=== PATIENT | female | born 1990 | race Caucasian/White ===

== ENCOUNTER → 2017-04-16 11:13 | Outpatient (CLI) | payer SELFPAY ==
[2017-04-16 15:21] LABS: Chlamydia Trachomatis by PCR Negative (Negative); Neisserai gonorrhoeae by PCR Negative (Negative); Probe Check PASS; Sample Adequacy Control PASS; Specimen Processing Control PASS
== END ==
PROVIDERS: Visit Provider Obstetrics & Gynecology
DX: Z32.01 Encounter for pregnancy test, result positive (principal); Z11.3 Encounter for screening for infections with a predominantly sexual mode of transmission
CPT/HCPCS: 87491; 87591

== ENCOUNTER 2017-05-20 06:01 | Day surgery (SDC) | payer SELFPAY ==
[2017-05-18 12:51] LABS: Hemoglobin 12.3 g/dl (12.0-15.0); Mean Corp Hgb Conc 34.2 g/gl (32-36); Mean Corpuscular Hgb 31.4 pg (27.0-32.0); Mean Corpuscular Volume 91.8 fL (81-99); Mean Platelet Vol. 10.4 fl (6.2-12.0); Platelet Count 260 K/mm3 (150-450); RBC Distribution Width CV 12.7 % (11.6-14.6); RBC Distribution Width SD 41.6 fl (35.1-43.9); Red Blood Count 3.92 M/mm3 (4.2-5.4); White Blood Count 5.9 K/mm3 (4.4-11.0)
[2017-05-18 12:53] LABS: Scan Indicated on CBC? Y/N NO
[2017-05-18 12:55] LABS: Partial Thromboplast Time 37.6 Seconds (24.1-36.2); Prothrombin Time (Protime)PT. 13.3 SECONDS (11.7-14.9)
[2017-05-20 06:48] VITALS: BP 124/92; PULSE 91; RESP 16; TEMP 36.7; O2SAT 100; BMI 17.1
--- NOTE | 2017-05-20 07:15 | POC_PTH ---
PATIENT: ADWOA BURNETT LOC: [facility] U#:[id number] AGE/SX: 27/F ROOM: RE05/20/[address]: Dr. Mayra Meyers MD : 1990 BED: DIS: 05/20/2017 SPEC #: [id number] RECD: 05/20/17 09:11 STATUS: RADHA GURWINDER #: [id number] DOTTY: 05/20/17 07:[address]: Mayra Villegas DEPT: SURGICAL PATHOLOGY RECD BY: Lino Peterson ENTERED: 05/20/17 09:12 SP TYPE: PROD CONC OTHR DR: Dr. Horace Rowe MD Tissues: Product of conception, NOS Procedures: Surgery Specimen Level IV HEADER OPERATION: Dilation and curettage, suction PRE-OP DIAGNOSIS: Missed TISSUE SUBMITTED: Products of conception MICROSCOPIC DIAGNOSIS Products of conception: Decidua, immature chorionic villi and gestational endometrium (products of conception). SJ:irena 05/21/17 MICROSCOPIC DESCRIPTION Slides are reviewed. GROSS DESCRIPTION Received in fixative is one container labeled with the patient's name and designated POC. The specimen consists of multiple irregular fragments of pink-mitchell soft tissue that in aggregate measure 7 x 6 x 1 cm. parts are not grossly recognized. Soda Dialyzer sections are submitted in one cassette. / AM:irena 05/20/17 TC:5 CPT: 39232
--- NOTE | 2017-05-20 08:04 | OP.PCM_ITS ---
Problem List (1) Missed Status: Acute Report of Operation Date of Procedure: 05/20/17 Pre-Operative Diagnosis: missed Post-Operative Diagnosis: missed Surgery/Procedure Performed:: Suction dilation and curettage Description of Surgical Findings:: Uterus 8w size and anteverted Type of Anesthesia:: Local MAC Anesthesiologist: Isauro Yang Specimen's removed: products of conception Estimated Blood Loss (mL): 10 Fluids Replaced: 400 mL Description of Procedure: Indications: Ms. Huertas is a 27-year-old 1 para 0 who presented for 11 week ultrasound with demise. She does have measured approximately 8 weeks gestational age. She was counseled regarding management options including observation versus medical management versus surgical management. Following discussion with review of risks, benefits, and indications she opted to proceed with suction dilation and curettage. Informed consent was obtained. Procedure: The patient was taken to the operating room and signed and was performed. She is placed in the dorsal supine position and induced under MAC she was then repositioned into dorsal lithotomy and examination under anesthesia performed. The perineum was prepped and draped in sterile fashion and straight catheterization of the bladder performed. A weighted speculum was placed into the vagina and the patient was placed into high lithotomy. The cervix is grasped the anterior cervical lip using a single-tooth tenaculum. A paracervical block for a total of 19 cc of 1% lidocaine was injected. The cervix was subsequently dilated to 25 [place] and suction curettage performed using a 8 mm curved curette. This is followed by sharp curettage and again suction curettage until there is no further retrieval of products of conception. The procedure was complete. The tenaculum was removed from the cervix and the tenaculum site hemostatic. Speculum was removed from the vagina. The patient was placed into dorsal supine position, awakened, and transferred to the recovery room without complication. - Complications None - Admit VTE Documentation VTE Present on Admission: No VTE Mechan Device Prophylaxis: SCD's VTE Pharm Prophylaxis ordered?: No
--- NOTE | 2017-05-20 08:04 | PCM.DC.D&C ---
Discharge Diet: No Restrictions Discharge Activity: Return to Normal Activity, May not drive while taking narcotic pain medications., May Shower, - - No tub bath for 1 week May resume sexual activity in: 4 weeks Call your doctor if you observe: Fever of 101 or Higher, Inability to urinate, Inability to have a bowel movement, Using more than one pad per hour, Shortness of breath, Chest pain, Calf discomfort, Uncontrolled pain Instructions: Discharge Instructions for Miscarriage Allergies/Adverse Reactions: Allergies No Known Allergies Allergy (Verified 05/19/17 16:52) Medications to take at Discharge NK [NK] 05/19/17 Primary Care Physician: Horace Rowe [Primary Care Provider] - Please Follow Up With: Mayra Allen MD When: 2-4 weeks
[2017-05-20 08:05] VITALS: BP 124/92; BP 134/83; PULSE 117; RESP 18; TEMP 5390; TEMP 9734; O2SAT 99
[2017-05-20 08:10] VITALS: BP 122/81; BP 124/92; PULSE 120; RESP 18; O2SAT 100
[2017-05-20 08:15] VITALS: BP 120/83; BP 124/92; PULSE 117; RESP 18; O2SAT 100
[2017-05-20 08:20] VITALS: BP 123/87; BP 124/92; PULSE 109; RESP 18; TEMP 36.3; O2SAT 100
[2017-05-20 08:55] VITALS: BP 124/92
== END 2017-05-20 09:07 | disposition home or self-care (01) ==
LOC: SDC 06:01 → AC 06:02
PROVIDERS: Family Provider Family Medicine; PCP Family Medicine; Visit Provider Obstetrics & Gynecology
PROC: (CPT 59820; principal; 2017-05-20 07:00)
DX: O02.1 Missed abortion (principal)
CPT/HCPCS: 59820; 36415; 85027; 85610; 85730; 86850; 86900; 88305; J7120

== ENCOUNTER → 2017-06-14 08:45 | Outpatient (CLI) | payer SELFPAY ==
[2017-06-14 09:38] LABS: International Normalized Ratio 1.1; Partial Thromboplast Time 40.5 Seconds (24.1-36.2)
== END ==
PROVIDERS: Visit Provider Obstetrics & Gynecology
DX: R79.1 Abnormal coagulation profile (principal)
CPT/HCPCS: 36415; 85610; 85730

== ENCOUNTER → 2018-01-14 10:25 | Outpatient (CLI) | payer SELFPAY ==
[2018-01-14 12:44] LABS: Chlamydia Trachomatis by PCR Negative (Negative); Neisserai gonorrhoeae by PCR Negative (Negative); Probe Check PASS; Sample Adequacy Control PASS; Specimen Processing Control PASS
--- OUTSIDE RECORDS SUMMARY | 2018-03-11 05:57 | XMS RPT_ITS ---
:1990 Author Organization [place] Care Team Providers Name Role Phone Mayra Allen Attending Unavailable Mayra Allen Attending Unavailable Mayra Allen Attending Unavailable Mayra Allen Referring Unavailable HORACE BARON Primary Care Unavailable Mayra Allen Attending Unavailable PROBLEMS PROBLEMS DATE TYPE CONDITION / CODE ATTENDING STATUS SOURCE 01/14/2018 Unknown Z11.3 - Encounter Nikhil Allen for screening for [facility] infections with a Hospital predominantly [facility] sexual mode of transmission / Z11.3(ICD-10) 08/05/2017 Unknown R79.1 - Abnormal Tiffany, Active [place] coagulation profile [facility] / R79.1(ICD-10) Hospital Repository 04/16/2017 Unknown Z32.01 - Encounter Tiffany, Active [place] for test, [facility] result positive / Hospital Z32.01(ICD-10) Repository PROCEDURES PROCEDURES No Procedure Records FoundRESULTS RESULTS CT/NG [facility] BY PCR Collected: 01/14/2018 Status: F Source: [place] 9:45 AM [facility] REPOSITORY TYPE CODE TESTS RESULT OUT OF RANGE REFERENCE UNITS LAB L8200.2100 Negative Normal Chlam Negative Trac PCR LAB L8200.2200 Negative Normal NG by Negative PCR Performed By: #### L8200.2000 #### [facility] [address] [place], [address] PROTHROMBIN TIME W/INR Collected: 06/14/2017 Status: F Source: [place] 8:48 AM [facility] REPOSITORY TYPE CODE TESTS RESULT OUT OF RANGE REFERENCE UNITS LAB L300.4150 11.7-14.9 SECONDS Normal PROTIME 14.0 LAB L300.4200 Normal INR 1.1 Performed By: #### L300.3900, L300.4310 #### [facility] [address] [facility] [place], [address] PARTIAL THROMBOPLAST Collected: 06/14/2017 Status: F Source: [place] TIME 8:48 AM [facility] REPOSITORY TYPE CODE TESTS RESULT OUT OF REFERENCE UNITS RANGE LAB L300.4310 24.1-36.2 Seconds High PTT 40.5 Performed By: #### L300.3900, L300.4310 #### [facility] [address] [place], [address] DISCHARGE INSTRUCTION Observed: 05/20/2017 Status: F Source: [place] 8:07 AM [facility] REPOSITORY [facility] Medical Records Department [address] [place] [address] Instructions for Home/Discharge Instructions 05/20/17 0804 MR#: [id number] Acct: [id number] Name: ADWOA HUERTAS Rep #: [id number] : 1990 From: Mayra Meyers MD PCP: HORACE BARON Status: REG SDC Discharge Diet: No Restrictions Discharge Activity: Return to Normal Activity, May not drive while taking narcotic pain medications., May Shower, - - No tub bath for 1 week May resume sexual activity in: 4 weeks Call your doctor if you observe: Fever of 101 or Higher, Inability to urinate, Inability to have a bowel movement, Using more than one pad per hour, Shortness of breath, Chest pain, Calf discomfort, Uncontrolled pain Instructions: Discharge Instructions for Miscarriage Allergies/Adverse Reactions: Allergies No Known Allergies Allergy (Verified 05/19/17 16:52) Medications to take at Discharge NK [NK] 05/19/17 Primary Care Physician: Horace Baron [Primary Care Provider] - Please Follow Up With: Mayra Allen MD When: 2-4 weeks 05/20/17 0807 <Electronically signed by Mayra Allen MD> Date Mayra Allen MD CC: HORACE BARON OPERATIVE REPORT Observed: 05/20/2017 Status: F Source: [place] 8:04 AM [facility] REPOSITORY [facility] Medical Records Department [address] [place] [address] Operative Report 05/20/17 0759 MR#: [id number] Acct: [id number] Name: ADWOA HUERTAS Rep #: [id number] : 1990 From: Mayra Meyers MD PCP: HORACE BARON Status: REG [facility] Y Location: [place] [address] Problem List (1) Missed Status: Acute Report of Operation Date of Procedure: 05/20/17 Pre-Operative Diagnosis: missed Post-Operative Diagnosis: missed Surgery/Procedure Performed:: Suction dilation and curettage Description of Surgical Findings:: Uterus 8w size and anteverted Type of Anesthesia:: Local MAC Anesthesiologist: Isauro Yang Specimen's removed: products of conception Estimated Blood Loss (mL): 10 Fluids Replaced: 400 mL Description of Procedure: Indications: Ms. Huertas is a 27-year-old 1 para 0 who presented for 11 week ultrasound with demise. She does have measured approximately 8 weeks gestational age. She was counseled regarding management options including observation versus medical management versus surgical management. Following discussion with review of risks, benefits, and indications she opted to proceed with suction dilation and curettage. Informed consent was obtained. Procedure: The patient was taken to the operating room and signed and was performed. She is placed in the dorsal supine position and induced under MAC she was then repositioned into dorsal lithotomy and examination under anesthesia performed. The perineum was prepped and draped in sterile fashion and straight catheterization of the bladder performed. A weighted speculum was placed into the vagina and the patient was placed into high lithotomy. The cervix is grasped the anterior cervical lip using a single-tooth tenaculum. A paracervical block for a total of 19 cc of 1% lidocaine was injected. The cervix was subsequently dilated to 25 [place] and suction curettage performed using a 8 mm curved curette. This is followed by sharp curettage and again suction curettage until there is no further retrieval of products of conception. The procedure was complete. The tenaculum was removed from the cervix and the tenaculum site hemostatic. Speculum was removed from the vagina. The patient was placed into dorsal supine position, awakened, and transferred to the recovery room without complication. - Complications None - Admit VTE Documentation VTE Present on Admission: No VTE Mechan Device Prophylaxis: SCD's VTE Pharm Prophylaxis ordered?: No 05/20/17 0804 <Electronically signed by Mayra Allen MD> Date Mayra Allen MD CC: HORACE BARON; Mayra Allen MD Signed PRODUCTS OF CONCEPTION Observed: 05/20/2017 Status: F Source: [place] 7:15 AM [facility] REPOSITORY Patient: ADWOA HUERTAS : 1990 () Acct Num: [id number] Phys: Tiffany RANGEL,Summer Unit Num: [id number] Loc: [facility] Specimen: [id number] Received: 05/20/17910 Spec Type: PROD CONC TISSUES TISSUES: Product of conception, NOS GROSS DESCRIPTION Received in fixative is one container labeled with the patient's name and designated POC. The specimen consists of multiple irregular fragments of pink -mitchell soft tissue that in aggregate measure 7 x 6 x 1 cm. parts are not grossly recognized. Dial Marker sections are submitted in one cassette. / AM:irena 05/20/17 TC:5 CPT: 14722 HEADER OPERATION: Dilation and curettage, suction PRE-OP DIAGNOSIS: Missed TISSUE SUBMITTED: Products of conception MICROSCOPIC DESCRIPTION Slides are reviewed. MICROSCOPIC DIAGNOSIS Products of conception: Decidua, immature chorionic villi and gestational endometrium (products of conception). SJ:irena 05/21/17 Signed Bradley Boothe 05/21/17 <signature on file> Performed By: #### PPOC #### [facility] [address] [place], [address] CBC-COMPLETE BLOOD CNT Collected: 2017 Status: F Source: [place] NO DIFF 12:26 PM [facility] REPOSITORY TYPE CODE TESTS RESULT OUT OF RANGE REFERENCE UNITS LAB L100.1000 4.4-11.0 K/mm3 Normal WBC 5.9 LAB L100.1200 4.2-5.4 M/mm3 Low RBC 3.92 LAB L100.1300 12.0-15.0 g/dl Normal HGB 12.3 LAB L100.1400 37-47 % Low HCT 36.0 LAB L100.1500 81-99 fL Normal MCV 91.8 LAB L100.1600 27.0-32.0 pg Normal MCH 31.4 LAB L100.1700 32-36 g/gl Normal MCHC 34.2 LAB L100.1810 11.6-14.6 % Normal RDW CV 12.7 LAB L100.1820 35.1-43.9 fl Normal RDW SD 41.6 LAB L100.1900 150-450 K/mm3 Normal PLT 260 LAB L100.2000 6.2-12.0 fl Normal MPV 10.4 Performed By: #### L100.0500 #### [facility] [address] [place], [address] PROTHROMBIN TIME W/INR Collected: 2017 Status: F Source: [place] 12:26 PM [facility] REPOSITORY TYPE CODE TESTS RESULT OUT OF RANGE REFERENCE UNITS LAB L300.4150 11.7-14.9 SECONDS Normal PROTIME 13.3 LAB L300.4200 Normal INR 1.0 Performed By: #### L300.3900, L300.4310 #### [facility] [address] [place], [address] PARTIAL THROMBOPLAST Collected: 2017 Status: F Source: [place] TIME 12:26 PM [facility] REPOSITORY TYPE CODE TESTS RESULT OUT OF REFERENCE UNITS RANGE LAB L300.4310 24.1-36.2 Seconds High PTT 37.6 Performed By: #### L300.3900, L300.4310 #### [facility] [facility] [place], [address] TYPE AND SCREEN Collected: 2017 Status: F Source: [place] 12:26 PM [facility] REPOSITORY Order Comment: Surgery Date: 05/20/17 Hx of Preganancy in last 3 Months Yes Ever experience any problems with transfusion(s)? N Hx of Transfusion in last 3 Months N Reason for Type AND Screen/Red Cells: SURGERY SURGICAL PROCEDURE: D AND C TYPE CODE TESTS RESULT OUT OF RANGE REFERENCE UNITS LAB B10.0800 A Normal BLOOD TYPE GEL POSITIVE LAB B100.4000 Normal Antibody NEGATIVE Screen Performed By: #### B101.7475 #### [facility] [address] [facility] [place], [address] CT/NG [facility] BY PCR Collected: 04/16/2017 Status: F Source: [place] 9:00 AM [facility] REPOSITORY TYPE CODE TESTS RESULT OUT OF RANGE REFERENCE UNITS LAB L8200.2100 Negative Normal Chlam Negative Trac PCR LAB L8200.2200 Negative Normal NG by Negative PCR Performed By: #### L8200.2000 #### [facility] [place], [address] ALLERGIES ALLERGIES DATE TYPE / CODE NAME / CODE REACTION SEVERITY SOURCE 05/19/2017 Drug No Known Unknown [facility] Allergy/4160 Allergies/F00 Hospital 15098(SNOMED 9145369(RXNOR Repository CT) M) ENCOUNTERS ENCOUNTERS ADMIT/DISCHARGE ACCOUNT ADMITTING ENCOUNTER LOCATION SOURCE NUMBER CLASS 01/14/2018 [id number] Ambulatory [place] 9 [facility] ing:LABSPEC Repository 06/14/2017 [id number] Amb[place] 4 [facility] ing:WOBLAB Repository 05/20/2017/ [id number] Ambulatory [place] 8 0 [facility] ing:SDCRoom: Repository AC06 04/16/2017 [id number] Ambulatory [place] 0 [facility] ing:LABSPEC Repository PAYERS PAYERS ENCOUNTER GUARANTOR PAYER SUBSCRIBER SOURCE 01/14/2018 ADWOA Hernandez Primary NOT GIVENUNK [place] [id number] Insurance:SELF PAY [address] Number: Effective Repository [id number]: ([phone] Date:2018-01-14 [phone] () 06/14/2017 ADWOA Hernandez Primary NOT GIVENUNK [place] [id number] Insurance:SELF PAY [address] Number: Effective Repository [id number]: [phone] Date:2017-06-14 [phone] () 05/20/2017 ADWOA Hernandez Primary Insurance:[facility] ADWOA Jimenezoster [id number] TR [facility] TROYERDOB: [address], Number: [id number] [id number]: [id number] Repository Date:2017-05-17 () 05/20/2017 Secondary NOT GIVENUNK [place] Insurance:SELF PAY [facility] Number: Effective Repository Date:2017-05-17 04/16/2017 Adwoa Huertas633 Primary NOT GIVENUNK [place] [facility] Insurance:SELF PAY [address] [address]Nwj: [phone] Number: Effective Repository [phone] () Date:2017-04-16
== END ==
PROVIDERS: Visit Provider Obstetrics & Gynecology
DX: Z11.3 Encounter for screening for infections with a predominantly sexual mode of transmission (principal)
CPT/HCPCS: 87491; 87591

== ENCOUNTER → 2018-02-14 10:46 | Outpatient (CLI) | payer SELFPAY ==
[2018-02-14 13:41] LABS: Absolute Lymphocyte Count 1.66 X10^3/ul (0.83-4.51); Absolute Neutrophil Count 4.7 X10^3/uL (2.0-7.7); Basophil# 0.01 X10^3/uL; Basophil% 0.1 % (0-1); Eosinophil# 0.05 X10^3/uL; Eosinophils% 0.7 % (0-5); Hematocrit 32.9 % (37-47); Hemoglobin 11.2 g/dl (12.0-15.0); Lymphocyte # 1.66 X10^3/ul (4.0); Mean Corpuscular Hgb 31.3 pg (27.0-32.0); Mean Corpuscular Volume 91.9 fL (81-99); Mean Platelet Vol. 10.1 fl (6.2-12.0); Monocyte# 0.51 X10^3/uL; Monocyte% 7.4 % (0-10); Neutrophil # 4.67 X10^3/uL (2.7-7.7); Neutrophil % 67.7 % (47-70); Platelet Count 217 K/mm3 (150-450); RBC Distribution Width CV 13.1 % (11.6-14.6); Red Blood Count 3.58 M/mm3 (4.2-5.4); White Blood Count 6.9 K/mm3 (4.4-11.0)
[2018-02-14 13:43] LABS: Color, Urine Yellow (Yellow); Glucose, Dipstick Normal (Normal); Ketone-Dipstick 5 mg/dl (Negative); Leukocyte Esterase-Dipstick Negative /ul (Negative); Nitrite-Dipstick Negative (Negative); Occult Blood-Urine Negative /ul (Negative); Protein-Dipstick Negative (Negative); Specific Gravity, Urine 1.025 (1.002-1.030); Urine Bilirubin Dipstick Negative (Negative); Urine Clarity Clear (Clear); Urine Urobilinogen Normal (Normal); Urine pH 6.5 (5.0 - 8.0)
[2018-02-14 13:45] LABS: POSITIVE COUNT NO; POSITIVE DIFFERENTIAL NO; POSITIVE MORPHOLOGY NO
[2018-02-14 13:56] LABS: Thyroid Stim Hormone (TSH) 1.53 uIU/mL (0.358-3.74)
[2018-02-14 13:58] LABS: Amphetamine Urine VISTA NEGATIVE (<1000 ng/mL); Barbiturate Urine VISTA NEGATIVE (< 200 ng/mL); Benzodiazepine Urine VISTA NEGATIVE (< 200 ng/mL); Cocaine Urine VISTA NEGATIVE (< 300 ng/mL); Ecstacy Urine VISTA NEGATIVE (< 500 ng/mL); Methadone Urine VISTA NEGATIVE (< 300 ng/mL); PCP Urine VISTA NEGATIVE (< 25 ng/mL); THC Urine VISTA NEGATIVE (< 50 ng/mL); Vista UDS pH Range 5
[2018-02-14 14:36] LABS: HIV - WCH Non-Reactive (Nonreactive); Rubella IgG 210.2 IU/mL; Vitamin D,25 Hydroxy 27.9 ng/mL (29.95-100.01)
[2018-02-15 13:25] LABS: HEPATITIS B SURFACE AG Negative (Negative); Hep C Antibodies <0.1 s/co ratio (0.0-0.9)
[2018-02-18 01:41] LABS: Prenatal RPR NONREACTIVE (NONREACTIVE)
== END ==
PROVIDERS: Visit Provider Obstetrics & Gynecology
DX: Z34.82 Encounter for supervision of other normal pregnancy, second trimester (principal)
CPT/HCPCS: 36415; 80307; 81002; 82306; 84443; 85025; 86703; 86762; 86803; 87340

== ENCOUNTER → 2018-05-05 15:41 | Outpatient (CLI) | payer SELFPAY ==
[2018-05-05 17:44] LABS: Hemoglobin 10.1 g/dl (12.0-15.0); Mean Corp Hgb Conc 32.6 g/gl (32-36); Mean Corpuscular Volume 95.1 fL (81-99); Mean Platelet Vol. 10.4 fl (6.2-12.0); Platelet Count 192 K/mm3 (150-450); RBC Distribution Width CV 11.9 % (11.6-14.6); RBC Distribution Width SD 39.8 fl (35.1-43.9); Red Blood Count 3.26 M/mm3 (4.2-5.4); White Blood Count 7.5 K/mm3 (4.4-11.0)
[2018-05-05 17:49] LABS: Scan Indicated on CBC? Y/N NO
[2018-05-05 17:50] LABS: Glucose Challenge Gest 1H 50g 123 mg/dL (70-140)
== END ==
PROVIDERS: Visit Provider Obstetrics & Gynecology
DX: Z34.82 Encounter for supervision of other normal pregnancy, second trimester (principal)
CPT/HCPCS: 36415; 82950; 85027

== ENCOUNTER → 2018-07-06 | Outpatient (CLI) | payer SELFPAY | END | disposition home or self-care (01) | LOC: LABSPEC 11:52 | PROVIDERS: Visit Provider Obstetrics & Gynecology | DX: Z36.85 Encounter for antenatal screening for Streptococcus B (principal) | CPT/HCPCS: 87081 ==

== ENCOUNTER 2018-07-23 11:59 | Inpatient (IN) | payer SELFPAY ==
[2018-07-23 09:54] VITALS: BMI 20.1
--- NOTE | 2018-07-23 12:07 | PCM.HPOB.BLA ---
History and Physical Date of Admission: 07/23/18 OB HISTORY AND PHYSICAL EXAMINATION History of this : 28 yo female Ab1 with EDC 07/25/2018 by 12 weeks 4 days Ultrasound, presents to Labor and Delivery with CC of painful UCs. 39 5/7 wk EGA. care remarkable for - A positive.Rubella IMMUNE. GBS NEGATIVE. 1.) PATIENT'S MOTHER WITH M.S-- plans cord blood banking 2.) ANEMIC on iron supplement 3.) Family hx of hemophilia. Avoid vacuum, avoid scalp electrode, NO CIRC. Patient with Prolonged PTT, INR has been 1.0 to 1.1 (WNL) Type and screen in labor. Pertinent Past Medical History: Negative Allergies: NKDA Medications: During - 28 mg-800 mcg tablet; Colace 100 mg capsule; ferrous sulfate 325 mg (65 mg iron) tablet Review of Systems: Painful UCs. No ROM no vaginal bleeding PHYSICAL EXAMINATION General Appearence: 28 yo female in no acute distress Vital Signs: AF, VSS Heart: RRR without rubs or gallops Lungs: CTA x 2 Breasts: deferred Abdomen: gravid Pelvis: adequate Cervix: 2/80/-2 here at admission L/T/Cl last ofc check. Presentation: cephalic Fetus: AGA Movement: present Heart: 110-120s avg variability. Accels category I tracing. UCs noted q 2-3 mins Impression /Plan: Intrauterine . 39 5/7 wk early labor Regular UCs with change of cervix. Admit for labor. will type and screen. INR has been normal, so not high likelihood of bleeding. PT/PTT/INR to be checked along with CBC. Reviewed options for pain relief in labor. Also discussed augmentation of labor prn. See Progress Notes for Changes: Physician's Signature: Date:
[2018-07-23] MEDS: Lactated Ringers 1,000 ML 50 ML IV ×3 (12:25→22:38)
[2018-07-23 12:52] LABS: Absolute Lymphocyte Count 1.27 X10^3/ul (0.83-4.51); Absolute Neutrophil Count 7.6 X10^3/uL (2.0-7.7); Eosinophil# 0.01 X10^3/uL; Eosinophils% 0.1 % (0-5); Hematocrit 33.7 % (37-47); Hemoglobin 11.5 g/dl (12.0-15.0); Lymphocyte # 1.27 X10^3/ul (4.0); Lymphocyte % 13.4 % (19-41); Mean Corp Hgb Conc 34.1 g/gl (32-36); Mean Corpuscular Hgb 30.4 pg (27.0-32.0); Mean Corpuscular Volume 89.2 fL (81-99); Mean Platelet Vol. 10.8 fl (6.2-12.0); Monocyte% 5.3 % (0-10); Neutrophil # 7.64 X10^3/uL (2.7-7.7); Neutrophil % 80.7 % (47-70); POSITIVE COUNT NO; POSITIVE DIFFERENTIAL NO; POSITIVE MORPHOLOGY NO; Platelet Count 181 K/mm3 (150-450); RBC Distribution Width CV 13.4 % (11.6-14.6); RBC Distribution Width SD 43.9 fl (35.1-43.9); Red Blood Count 3.78 M/mm3 (4.2-5.4); White Blood Count 9.5 K/mm3 (4.4-11.0)
[2018-07-23 13:01] LABS: International Normalized Ratio 0.9; Prothrombin Time (Protime)PT. 12.4 SECONDS (11.7-14.9)
--- NOTE | 2018-07-23 14:32 | PCM.PN.BLA ---
Progress Note LABOR PROGRESS NOTE Feeling some strong UCs. AVSS EFM 120s with accels Category I tracing, UCs q 2-6 mins. CX: tight /-2 midposition. soft AROM mod clear fluid A/P: 39 5/7 wk EGA labor. AROM to augment. Reviewed stronger UCs and potentially closer together. Aware of pain relief options for prn use. Continue labor PT/PTT/INR all WNL. Type and screen sent. May convert prn to T and C
[2018-07-23] MEDS: fentaNYL-bupivacaine (epidural) 100 ML BAG EPIDURAL ×2 (17:50→23:26)
--- NOTE | 2018-07-23 20:52 | PCM.PN.BLA ---
Progress Note LANOBR PROGRESS NOTE Comfortable w/ epidural AVSS EFM 120s with avg variability. Accels UCs q 2-4 1/2 mins CX; /-1 per last RN check approx 1999 A/P: 39 5/7 wk labor. AROM. Epidural placed. Watch progress Position changes for rotation, descent. -- cord blood kit for collection
[2018-07-23] MEDS: Ondansetron 4 MG/2 ML Vial IV (21:51)
--- NOTE | 2018-07-23 21:59 | PCM.PN.BLA ---
Progress Note LABOR PROGRESS NOTE Comfortable with epidural AVSS No pitocin EFM category I tracing Inc bloody show. Complete on nurse exam. A/P: 39 5/7 wk EGA spont labor. AROM to augment. Comfortable with Epidural. Labor down, begin pushing prn. Anticipate -- cord blood kit for collection.
[2018-07-23] MEDS: Mag Hydrox/Al Hydrox/Simeth 30 ML UDC PO (22:37)
--- NOTE | 2018-07-23 23:57 | PCM.DCVAG ---
Discharge Diet: No Restrictions May resume sexual activity in: 4-6 weeks Additional Instructions: If you experience any of the following, contact your healthcare provider. Bleeding that soaks a pad every hour for 2 hours Fever 100.4 or higher Unrelieved abdominal pain Problems urinating (including inability to urinate or burning while urinating). Visual changes Severe headache Flu-like symptoms Pain or redness in one of both of your breasts Pain, warmth, tenderness or swelling in your legs, especially the calf area Frequent nausea and vomiting Symptoms of depression or anxiety If you experience any of the following, call 911 or go to the nearest Emergency Room. Chest pain Problems breathing Seizure activity Partial or complete paralysis of a body part, slurred speech, weakness or drooping of the face, or a sudden inability to walk or hold your balance Allergies/Adverse Reactions: Allergies No Known Allergies Allergy (Verified 05/19/17 16:52) Medications to take at Discharge Ferrous Sulfate [Iron] 325 mg PO BID 07/23/18 Vits [Prenatabs FA] 1 tablet PO DAILY 07/23/18 Please Follow Up With: Any Alston MD - [phone] When: Call to make an appointment with your doctor in 6 weeks. Primary Care Physician: Horace Rowe [Primary Care Provider] - Test Results: Test results from this visit will be discussed in further detail at your follow-up appointment, if applicable. Proposed Discharge Date: 07/26/18
--- NOTE | 2018-07-23 23:58 | DCINST_ITS ---
Discharge Diet: No Restrictions May resume sexual activity in: 4-6 weeks Additional Instructions: If you experience any of the following, contact your healthcare provider. * Bleeding that soaks a pad every hour for 2 hours * Fever 100.4 or higher * Unrelieved abdominal pain * Problems urinating (including inability to urinate or burning while urinating). * Visual changes * Severe headache * Flu-like symptoms * Pain or redness in one of both of your breasts * Pain, warmth, tenderness or swelling in your legs, especially the calf area * Frequent nausea and vomiting * Symptoms of depression or anxiety If you experience any of the following, call 911 or go to the nearest Emergency Room. * Chest pain * Problems breathing * Seizure activity * Partial or complete paralysis of a body part, slurred speech, weakness or drooping of the face, or a sudden inability to walk or hold your balance Allergies/Adverse Reactions: Allergies No Known Allergies Allergy (Verified 05/19/17 16:52) Medications to take at Discharge Ferrous Sulfate [Iron] 325 mg PO BID 07/23/18 Vits [Prenatabs FA] 1 tablet PO DAILY 07/23/18 Please Follow Up With: Any Alston MD - [phone] When: Call to make an appointment with your doctor in 6 weeks. Primary Care Physician: Horace Rowe [Primary Care Provider] - Test Results: Test results from this visit will be discussed in further detail at your follow- up appointment, if applicable. Proposed Discharge Date: 07/26/18
[2018-07-24] MEDS: Oxytocin 30 units/NS 500 ml 30 UNITS/500 ML IV.SOLN 334 UNITS IV (01:33)
--- NOTE | 2018-07-24 01:42 | PCM.OPRPT ---
Vaginal Delivery Maternal Presentation: Active Labor 39 5/7 wk labor Method of Induction: Amniotomy Amniotic Membrane Rupture Type: Artificial Amniotic Fluid Description: Clear Final EMILY: 07/25/18 Gestational age: 39 Weeks and 6 Days Date of Procedure: 07/24/18 Pre-Operative Diagnosis: 39 6/7 wk EGA labor Post-Operative Diagnosis: same Surgery/ Procedure Performed: Spontaneous Vaginal Delivery Anesthesiologist: Rose Marie Conroy MD Type of Anesthesia: Epidural Description of Procedure: of a mcgowan viable female over intact perineum to lacerations. Head delivered LAY. No nuchal cord. Shoulders delivered spontaneously after head OP and nares bulb suctioned on abdomen. Cord clamped x two and cut near baby to allow maximum cord blood collection for kit / stem cells. Cord blood collected into bag to be sent per directions. Ap 8/9 PP exam: 2nd deg midline posterior vaginal and perineal laceration noted. Repaired under epidural to hemostatic, intact with 3-0 Vicryl No other lacerations noted. Perineum, labia edematous Placenta delivered by spont expulsion, expression. normal appearing intact 3 V cord. Trailing membranes EBL 200 cc Pt and tolerated delivery well. To recovery, stable condition Raytec and needle counts correct times two Presentation: Vertex, LAY Placental Delivery Description: Spontaneous, Expressed Placenta Disposition: [facility] - Cord blood collected / cord blood kit Cord Vessel Description: 3 Vessels Cord Entanglement: None Drain: Ray to straight drain Estimated Blood Loss: 200 Infant A gender: Female (1 minute): 8 (5 minute): 9 Episiotomy Description: None Laceration: Midline, Perineal Extension/lac, Vaginal Extension/lac, 2nd degree Medications given after delivery: IV Pitocin Complications: None
[2018-07-24] MEDS: Oxytocin 30 units/NS 500 ml 30 UNITS/500 ML IV.SOLN 167 UNITS IV (02:03)
--- NOTE | 2018-07-24 06:15 | NURSING ---
epidural catheter removed with blue tip intact @ 0600
--- NOTE | 2018-07-24 07:42 | PN.OBGYN_ITS ---
Subjective: Day of Delivery Minimal pain and cramping. no heavy bleeding reported. Nursing. Still swollen at perineum and ice pack on. Paredes in place IV to Saline lock Objective: Lying in bed nursing baby. NAD Paredes in place IV to Saline lock - Physical Exam General: Alert, Oriented x3, Cooperative, No apparent distress HEENT: Atraumatic Neck: Supple Abdomen: Soft - fundus firm tender at 1-2 cm inferior to umbilicus Neurological: Cranial nerves II-XII grossly intact Psych/Mental Status: Normal Affect Weight: 56.699 kg Body Mass Index (BMI) 20.1 Intake and Output for Last 24 Hours 07/22/18 07/23/18 07/24/18 23:59 23:59 23:59 Intake Total 2046 / 2046 1185 / 1185 Output Total 500 / 500 400 / 400 Balance 1546 / 1546 785 / 785 Laboratory Tests Past 24 Hrs 07/23/18 07/23/18 07/23/18 11:25 11:25 11:25 WBC 9.5 RBC 3.78 L Hgb 11.5 L Hct 33.7 L MCV 89.2 MCH 30.4 MCHC 34.1 RDW 13.4 RDW Differential 43.9 Plt Count 181 MPV 10.8 Immature Gran % (Auto) 0.500 Neut % (Auto) 80.7 H Lymph % (Auto) 13.4 L [place] % (Auto) 5.3 Eos % (Auto) 0.1 Baso % (Auto) 0.0 Absolute Neuts (auto) 7.6 Absolute Lymphs (auto) 1.27 Total Counted Not Reportable PT 12.4 INR 0.9 APTT 31.0 Blood Type A POSITIVE Antibody Screen NEGATIVE Medical Necessity - Tobacco Use Smoking Status: Never smoker Assessment/Plan All Active Problems Missed (Acute) Day of Delivery Stable D/C paredes and S/L later today Continue routine pp care
[2018-07-24 08:00] VITALS: BP 125/74; PULSE 105; RESP 16; TEMP 36.6; O2SAT 99
--- NOTE | 2018-07-24 08:42 | NURSING ---
Ray cath in place due to perineal swelling. Will assess for d/c with next assessment.
[2018-07-24 12:30] VITALS: BP 109/70; PULSE 88; RESP 16; TEMP 36.9
[2018-07-24] MEDS: Naproxen 250 MG Tablet 500 MG PO ×2 (13:42→21:45)
--- NOTE | 2018-07-24 13:44 | NURSING ---
Perineum remains edematous with inner labia covering urethra. Fresh ice applied and naproxen given. Will reassess for paredes removal with next check.
[2018-07-24 16:40] VITALS: BP 97/64; PULSE 99; RESP 14; TEMP 36.6; O2SAT 98
[2018-07-24 21:31] VITALS: BP 118/62; PULSE 76; RESP 18; TEMP 36.4
[2018-07-25 02:24] VITALS: BP 107/69; PULSE 80; RESP 18; TEMP 36.3
[2018-07-25] MEDS: Naproxen 250 MG Tablet 500 MG PO (07:59)
[2018-07-25 08:00] VITALS: BP 120/72; PULSE 84; RESP 16; TEMP 36.8; O2SAT 98
--- NOTE | 2018-07-25 08:28 | PCM.PN.OB ---
- Physical Exam Vital Signs Temp Pulse Resp BP Pulse Ox 98.2 F 84 16 120/72 98 07/25/18 08:00 07/25/18 08:00 07/25/18 08:00 07/25/18 08:00 07/25/18 08:00 Oxygen Delivery Method Room Air Weight: 56.699 kg Body Mass Index (BMI) 20.1 Intake and Output for Last 24 Hours 07/23/18 07/24/18 07/25/18 23:59 23:59 23:59 Intake Total 2046 / 2046 1185 / 1185 Output Total 500 / 500 3050 / 3050 100 / 100 Balance 1546 / 1546 -1865 / -1865 -100 / -100 Medical Necessity - Tobacco Use Smoking Status: Never smoker Assessment/Plan Day of Delivery Stable D/C lena and S/L later today Continue routine pp care
--- NOTE | 2018-07-25 08:28 | PCM.PN.OB ---
Subjective: PPD#1 Primip States still sore and swollen at perineum. Likely will stay until tomorrow to rest, and for additional assistance with nursing. - Physical Exam General: Alert, Oriented x3, Cooperative, No apparent distress HEENT: Atraumatic Neck: Supple Neurological: Cranial nerves II-XII grossly intact Psych/Mental Status: Normal Affect Vital Signs Temp Pulse Resp BP Pulse Ox 98.2 F 84 16 120/72 98 07/25/18 08:00 07/25/18 08:00 07/25/18 08:00 07/25/18 08:00 07/25/18 08:00 Oxygen Delivery Method Room Air Weight: 56.699 kg Body Mass Index (BMI) 20.1 Intake and Output for Last 24 Hours 07/23/18 07/24/18 07/25/18 23:59 23:59 23:59 Intake Total 2046 / 2046 1185 / 1185 Output Total 500 / 500 3050 / 3050 100 / 100 Balance 1546 / 1546 -1865 / -1865 -100 / -100 Medical Necessity - Tobacco Use Smoking Status: Never smoker Assessment/Plan PPD#1 vaginal delivery Stable Continue care
--- NOTE | 2018-07-25 13:26 | PCM.PN.BLA ---
Progress Note ADDENDUM: requests to go home today. Baby testing all completed. Dischg order entered
[2018-07-25 13:45] VITALS: BP 118/77; PULSE 87; TEMP 36.7; O2SAT 98
[2018-07-25 20:19] VITALS: BP 115/77; PULSE 88; RESP 18; TEMP 36.8
[2018-07-25] MEDS: Senna/Docusate Sodium 1 Tablet PO (21:43)
[2018-07-26 02:32] VITALS: BP 108/78; PULSE 71; RESP 18; TEMP 37.1
--- NOTE | 2018-07-26 08:07 | PCM.PN.OB ---
Subjective: PPD#2 Doing well. - Physical Exam General: Alert, Oriented x3, Cooperative, No apparent distress HEENT: Atraumatic Neck: Supple Psych/Mental Status: Normal Affect Vital Signs Temp Pulse Resp BP Pulse Ox 98.8 F 71 18 108/78 98 07/26/18 02:32 07/26/18 02:32 07/26/18 02:32 07/26/18 02:32 07/25/18 13:45 Oxygen Delivery Method Room Air Weight: 56.699 kg Body Mass Index (BMI) 20.1 Intake and Output for Last 24 Hours 07/24/18 07/25/18 07/26/18 23:59 23:59 23:59 Intake Total 1185 / 1185 Output Total 3050 / 3050 100 / 100 Balance -1865 / -1865 -100 / -100 Medical Necessity - Tobacco Use Smoking Status: Never smoker Assessment/Plan PPD#2 vaginal delivery Stable dischg home
[2018-07-26 08:50] VITALS: BP 119/77; PULSE 82; RESP 14; TEMP 36.5
== END 2018-07-26 09:40 | disposition home or self-care (01) | DRG 989 ==
LOC: WPOUT 12:04
PROVIDERS: Admitting Provider Obstetrics & Gynecology; Family Provider Family Medicine; PCP Family Medicine; Referring Provider Obstetrics & Gynecology; Visit Provider Obstetrics & Gynecology
DX: D64.9 Anemia, unspecified (principal); O99.02 Anemia complicating childbirth; O70.1 Second degree perineal laceration during delivery; Z83.2 Family history of diseases of the blood and blood-forming organs and certain disorders involving the immune mechanism; Z37.0 Single live birth; Z3A.39 39 weeks gestation of pregnancy
CPT/HCPCS: 59025; 59050; 85025; 85610; 85730; 86850; 86900; 99218; J7120; G0378; J2405

== ENCOUNTER → 2018-08-29 | Outpatient (CLI) | payer SELFPAY | END | disposition home or self-care (01) | PROVIDERS: Family Provider Family Medicine; PCP Family Medicine; Referring Provider Obstetrics & Gynecology; Visit Provider Obstetrics & Gynecology | DX: Z12.4 Encounter for screening for malignant neoplasm of cervix (principal) ==

== ENCOUNTER → 2019-08-29 16:38 | Outpatient (CLI) | payer SELFPAY ==
[2019-08-29 18:09] LABS: Absolute Lymphocyte Count 1.96 X10^3/uL (0.83-4.51); Absolute Neutrophil Count 4.7 X10^3/uL (2.0-7.7); Basophil# 0.02 X10^3/uL; Basophil% 0.3 % (0-1); Eosinophils% 1.4 % (0-5); Hematocrit 35.7 % (37-47); Hemoglobin 11.9 g/dL (12.0-15.0); Lymphocyte # 1.96 X10^3/ul (4.0); Lymphocyte % 26.8 % (19-41); Mean Corp Hgb Conc 33.3 g/dL (32-36); Mean Corpuscular Hgb 31.2 pg (27.0-32.0); Mean Corpuscular Volume 93.7 fL (81-99); Mean Platelet Vol. 10.6 fl (6.2-12.0); Monocyte# 0.48 X10^3/uL; Monocyte% 6.6 % (0-10); NRBC Flagged by Analyzer 0 % (0-5); Neutrophil # 4.72 X10^3/uL (2.7-7.7); Neutrophil % 64.5 % (47-70); Platelet Count 260 K/mm3 (150-450); RBC Distribution Width CV 12.2 % (11.6-14.6); Red Blood Count 3.81 M/mm3 (4.2-5.4); White Blood Count 7.3 K/mm3 (4.4-11.0)
[2019-08-29 18:36] LABS: Color, Urine Yellow (Yellow); Glucose, Dipstick Normal (Normal); Ketone-Dipstick 15 mg/dl (Negative); Leukocyte Esterase-Dipstick Negative /ul (Negative); Nitrite-Dipstick Negative (Negative); Occult Blood-Urine Negative /ul (Negative); Protein-Dipstick Negative (Negative); Urine Bilirubin Dipstick Negative (Negative); Urine Clarity Clear (Clear); Urine Urobilinogen Normal (Normal); Urine pH 6.5 (5.0 - 8.0)
[2019-08-29 18:54] LABS: Thyroid Stim Hormone (TSH) 0.43 uIU/mL (0.358-3.74)
[2019-08-29 20:15] LABS: Chlamydia Trachomatis by PCR Negative (Negative); Neisserai gonorrhoeae by PCR Negative (Negative); Probe Check PASS; Sample Adequacy Control PASS; Specimen Processing Control PASS
[2019-08-30 10:53] LABS: HIV - WCH Non-Reactive (Nonreactive); Hepatitis B Surface Antigen Non-Reactive (Nonreactive); Hepatitis C Antibody Non-Reactive (Nonreactive); Rubella IgG 166.9 IU/mL
[2019-08-31 03:25] LABS: Prenatal RPR NONREACTIVE (NONREACTIVE)
== END ==
PROVIDERS: PCP Family Medicine; Visit Provider Obstetrics & Gynecology
DX: Z11.3 Encounter for screening for infections with a predominantly sexual mode of transmission (principal)
CPT/HCPCS: 36415; 81002; 84443; 85025; 86703; 86762; 86803; 87340; 87491; 87591

== ENCOUNTER → 2019-12-26 09:12 | Outpatient (CLI) | payer SELFPAY ==
[2019-12-26 10:45] LABS: Hematocrit 31.4 % (37-47); Hemoglobin 10.1 g/dL (12.0-15.0); Mean Corp Hgb Conc 32.2 g/dL (32-36); Mean Corpuscular Hgb 30.9 pg (27.0-32.0); Mean Platelet Vol. 10.6 fl (6.2-12.0); Platelet Count 187 K/mm3 (150-450); RBC Distribution Width CV 12.2 % (11.6-14.6); RBC Distribution Width SD 43.1 fl (35.1-43.9); Red Blood Count 3.27 M/mm3 (4.2-5.4)
[2019-12-26 10:52] LABS: Glucose Challenge Gest 1H 50g 125 mg/dL (70-140)
== END ==
PROVIDERS: PCP Family Medicine; Visit Provider Obstetrics & Gynecology
DX: Z34.83 Encounter for supervision of other normal pregnancy, third trimester (principal)
CPT/HCPCS: 36415; 82950; 85027

== ENCOUNTER → 2020-02-28 | Outpatient (CLI) | payer SELFPAY | END | disposition home or self-care (01) | LOC: LABSPEC 11:45 | PROVIDERS: PCP Family Medicine; Visit Provider Obstetrics & Gynecology | DX: Z36.85 Encounter for antenatal screening for Streptococcus B (principal) | CPT/HCPCS: 87081 ==

== ENCOUNTER 2020-03-20 03:46 | Inpatient (IN) | payer SELFPAY ==
[2020-03-20] VITALS (46 sets, daily range): BP systolic 97–202; BP diastolic 51–160; PULSE 67–206; RESP 16; TEMP 36.8–37.2; O2SAT 83–99; BMI 21.2
[2020-03-20] MEDS: Lactated Ringers 500 ML 999 ML IV (04:05)
[2020-03-20 04:31] LABS: Absolute Lymphocyte Count 1.37 X10^3/uL (0.83-4.51); Absolute Neutrophil Count 6.7 X10^3/uL (2.0-7.7); Basophil# 0.02 X10^3/uL; Basophil% 0.2 % (0-1); Eosinophil# 0.02 X10^3/uL; Eosinophils% 0.2 % (0-5); Hematocrit 34.2 % (37-47); Hemoglobin 11.5 g/dL (12.0-15.0); Lymphocyte # 1.37 X10^3/ul (4.0); Lymphocyte % 15.7 % (19-41); Mean Corp Hgb Conc 33.6 g/dL (32-36); Mean Corpuscular Hgb 30.6 pg (27.0-32.0); Mean Platelet Vol. 11.4 fl (6.2-12.0); Monocyte% 5.7 % (0-10); NRBC Flagged by Analyzer 0 % (0-5); Neutrophil # 6.71 X10^3/uL (2.7-7.7); Neutrophil % 77.3 % (47-70); Platelet Count 162 K/mm3 (150-450); RBC Distribution Width CV 13.1 % (11.6-14.6); RBC Distribution Width SD 43.1 fl (35.1-43.9); Red Blood Count 3.76 M/mm3 (4.2-5.4); White Blood Count 8.7 K/mm3 (4.4-11.0)
[2020-03-20] MEDS: Lactated Ringers 1,000 ML 200 ML IV ×2 (04:36→09:43)
[2020-03-20] MEDS: fentaNYL-bupivacaine (epidural) 100 ML BAG EPIDURAL ×2 (05:06→10:16)
--- NOTE | 2020-03-20 05:12 | HP.PCM_ITS ---
- Problem List (1) 40 weeks gestation of Status: Acute History Date of Admission: 03/20/20 Final EMILY: 03/19/20 Final EMILY Source: [place] <20 weeks Gestational age: 40 Weeks and 1 Days History of this : This is a 29 year-old, G [3], P [1011], at 40 1/7 weeks gestational age presents with contractions. No other complaints. +FM, no LOF or VB. Issues: Anemia EPIDURAL PLANNED Family hx hemophilia - avoid scalp electrode, vacuum, NO CIRC Consider Forcepts > vacuum if needed Plan T x 2 U PRBC on admission Prolonged PTT, INR has been 1.0 to 1.1 (WNL) - previously declined additional testing Medical History: Medical History (Last Updated 03/20/20 @ 05:[address] Mayra Meyers MD) Missed (Inactive) O02.1 Surgical History: Surgical History (Last Updated 03/20/20 @ 05:[address] Mayra Meyers MD) H/O dilation and curettage Z98.890 05/20/2017 [place] teeth extracted K08.409 04/20/2012 Allergies No Known Allergies Allergy (Verified 03/20/20 04:40) Home Medications: Home Medications Ferrous Sulfate [Iron] 325 mg PO BID 07/23/18 Vits [Prenatabs FA] 1 tablet PO DAILY 07/23/18 Smoking Status: Never smoker Alcohol: None NST - FHR Rate Baby A Baseline: 135 Variability:: Moderate Accelerations:: 15 x 15 Decelerations:: None NST Reactive:: Yes FHR Category:: Category I Uterine Activity:: 2-3/10 History Past Pregnancies: Past Pregnancies Delivery Date Name GA/ Weeks Outcome Route Wt Sex Labor Length Anesthesia Delivery Location Provider FOB Labs: Mom's Microbiology 03/20/20 03:56 Mucosa - Nose SARS-CoV-2 Antigen (Rapid) - Final Mom's Problem List Problem Status Onset Code 40 weeks gestation of Acute Z3A.40 Mom[facility] Labs & Results 03/20/20 03/20/20 03/20/20 04:05 04:05 04:05 WBC 8.7 RBC 3.76 L Hgb 11.5 L Hct 34.2 L MCV 91.0 MCH 30.6 MCHC 33.6 RDW Std Deviation 43.1 RDW Coeff of [place] 13.1 Plt Count 162 MPV 11.4 Immature Gran % (Auto) 0.900 Neut % (Auto) 77.3 H Lymph % (Auto) 15.7 L [place] % (Auto) 5.7 Eos % (Auto) 0.2 Baso % (Auto) 0.2 Absolute Neuts (auto) 6.7 Absolute Lymphs (auto) 1.37 Nucleated RBC % 0 Blood Type Pending Antibody Screen Pending Crossmatch See Detail Course Did the patient receive Yes care? Labs Blood Type: A RH: POSITIVE RPR/VDRL/Syphilis Nonreactive Rubella status Immune HbSAg Negative Date Done: 08/29/19 Chlamydia Negative Gonorrhea Negative HIV/AIDS Non-Reactive Group B Strep: Negative Current Obstetrical History Gestational Diabetes No Incompetent Cervix No Infertility No IUGR No Macrosomia No Hypertension/Pre-eclampsia No Placenta Previa/Abruption No PTL/PROM No Uterine anomaly No Oligohydramnios No Polyhydramnios No Multiple gestation No Past Medical History Asthma No Diabetes No Hypertension No Heart disease No Mitral valve prolapse No Neurologic/Seizure disorder/ No Migraines Kidney disease No Liver disease No Varicosities No Clotting disorders/Hx of DVT No Thyroid Dysfunction No Other medical diseases No Psychiatric disorders No Major trauma No Abnormal PAP smear No Sleep apnea No Mammogram in the last 2 years No Social History Marital Status: Alleged father Pankaj Hx Smoking No Smoking Status Never smoker Family History Mother - MS Father with Hemophilia Expected Infant Delivery Method: Spontaneous Vaginal Number of Visits: 10 Physical Exam Vitals: Vital Signs Temp Pulse BP Pulse Ox 98.4 F 92 112/71 98 03/20/20 03:43 03/20/20 05:08 03/20/20 05:05 03/20/20 05:08 General: Alert, Oriented x3, Cooperative, No apparent distress HEENT: Atraumatic, Normocephalic Cardiovascular: Regular rate, Regular Rhythm, Normal S1, Normal S2 Lungs: Clear to auscultation, Normal air movement Abdomen: Soft, Non Tender, Non-Distended, Gravid Estimated gestational size: Appropriate for gestational size Presentation: Cephalic Cervix Dilation (cm): 5 - per RN exam Station: -2 Effacement (%): 75 Assessment/Plan All Active Problems (Last Updated 02/03/21 @ 05:[address] Mayra Meyers MD) 40 weeks gestation of (Acute) This is a 29 year-old, G [3], P [1011], at 40 1/7 weeks gestational age. -epidural per patient request -Expectant management
--- NOTE | 2020-03-20 06:55 | PCM.PN.BLA ---
Progress Note LABOR PROGRESS NOTE Comfortable with epidural. AVSS GEN - NAD, AAOx 3 FHR 140, moderate variability, + acceleratiosn, no decelerations TOCO 3/10 min SVE 9/80/-1, CEPHALIC, BBOW A/P: 29yo @ 40 1/7wga, Cat I FHR -Amniotomy performed with meconium stained fluid -Continue in labor -Maternal and statuses overall reassuring STROKE Vital Signs/Narrative: Vital Signs Temp Pulse BP Pulse Ox 03/20/20 06:41 87 107/62 03/20/20 06:13 81 126/66 H 03/20/20 05:58 99 03/20/20 05:55 107 H 85 03/20/20 05:49 89 98 03/20/20 05:44 91 99 03/20/20 05:39 78 99 03/20/20 05:38 76 111/67 03/20/20 05:34 82 118/71 99 03/20/20 05:29 81 99 03/20/20 05:25 82 112/72 03/20/20 05:24 99 03/20/20 05:19 86 124/78 H 98 03/20/20 05:13 85 110/66 97 03/20/20 05:11 88 110/64 03/20/20 05:08 92 98 03/20/20 05:05 80 112/71 03/20/20 05:03 85 99 03/20/20 04:59 93 119/58 L 03/20/20 04:58 92 98 03/20/20 04:54 100 128/72 H 03/20/20 04:53 100 99 03/20/20 04:52 67 86 03/20/20 04:48 88 123/67 H 99 03/20/20 04:45 84 114/66 03/20/20 04:43 91 99 03/20/20 04:39 95 135/66 H 03/20/20 03:43 98.4 F 90 124/80 H 99
[2020-03-20] MEDS: Oxytocin 30 units/NS 500 ml 30 UNITS/500 ML IV.SOLN 334 UNITS IV (10:47)
--- NOTE | 2020-03-20 11:09 | PCM.OPRPT ---
Problem List (1) 40 weeks gestation of Status: Acute (2) (spontaneous vaginal delivery) Status: Acute Vaginal Delivery Maternal Presentation: Active Labor Method of Induction: - Amniotic Membrane Rupture Type: Artificial Rupture of Membrane time: 03/20/20 0647 47 okmeena thanks I by Apkimberly Amniotic Fluid Description: Lightly stained meconium Final EMILY: 03/19/20 Gestational age: 40 Weeks and 1 Days [place] doctor who attended delivery (if requested by OB): Perla Melgoza Date of Procedure: 03/20/20 Pre-Operative Diagnosis: 40 1/7 wga Post-Operative Diagnosis: 40 1/7 wga Surgery/ Procedure Performed: Spontaneous Vaginal Delivery Anesthesiologist: Rose Marie Conroy Type of Anesthesia: Epidural Description of Procedure: Patient was FD/+4 station on my arrival with spontaneous delivery of the head with uterine contraction. The infant shoulders delivered with ease revealing a male . Infant was placed on the maternal abdomen and further attended by nursery personnel. The cord was doubly clamped and cut at 3 minutes of life. The placenta delivered spontaneously and appeared intact on inspection. Second degree perineal laceration was repaired with 3-0 Vicryl Rapide. Sponge and needle counts correct x 2. Presentation: Vertex Placental Delivery Description: Spontaneous Placenta Disposition: [facility] Cord Vessel Description: 3 Vessels Nuchal Cord Compression: Without compression Cord Entanglement: None Drain: Ray to straight drain Estimated Blood Loss: 350 ml Infant A gender: Male (1 minute): 8 (5 minute): 9 Episiotomy Description: None Laceration: Midline, Perineal Extension/lac, Vaginal Extension/lac, 2nd degree Medications given after delivery: IV Pitocin Complications: None
--- NOTE | 2020-03-20 11:16 | DCINST_ITS ---
Discharge Diet: No Restrictions Discharge Activity: Return to Normal Activity, May Shower, May Take a Tub Bath May resume sexual activity in: 6 weeks Lifting Restrictions: 20--25 lb Call your doctor if you observe: Fever of 101 or Higher, Inability to urinate, I nability to have a bowel movement, Using more than one pad per hour, Shortness of breath, Chest pain, Calf discomfort, Uncontrolled pain Suture Line Care: Avoid Pulling/Pushing Cleanse incision/area with: Soap & Water Additional Instructions: If you experience any of the following, contact your healthcare provider. * Bleeding that soaks a pad every hour for 2 hours * Fever 100.4 or higher * Unrelieved incision or abdominal pain * Swelling, redness, discharge or bleeding from your incision or episiotomy site * Your incision begins to separate * Problems urinating (including inability to urinate or burning while urinating). * Visual changes * Severe headache * Flu-like symptoms * Pain or redness in one of both of your breasts * Pain, warmth, tenderness or swelling in your legs, especially the calf area * Frequent nausea and vomiting * Symptoms of depression or anxiety If you experience any of the following, call 911 or go to the nearest Emergency Room. * Chest pain * Problems breathing * Seizure activity * Partial or complete paralysis of a body part, slurred speech, weakness or drooping of the face, or a sudden inability to walk or hold your balance Allergies/Adverse Reactions: Allergies No Known Allergies Allergy (Verified 03/20/20 04:40) Medications to take at Discharge Ferrous Sulfate [Iron] 325 mg PO BID 07/23/18 Vits [Prenatabs FA] 1 tablet PO DAILY 07/23/18 Please Follow Up With: Tiffany When: 6 weeks Primary Care Physician: Horace Rowe MD [Primary Care Provider] - Test Results: Test results from this visit will be discussed in further detail at your follow- up appointment, if applicable.
--- NOTE | 2020-03-20 11:16 | PCM.DCVAG ---
Discharge Diet: No Restrictions Discharge Activity: Return to Normal Activity, May Shower, May Take a Tub Bath May resume sexual activity in: 6 weeks Lifting Restrictions: 20--25 lb Call your doctor if you observe: Fever of 101 or Higher, Inability to urinate, Inability to have a bowel movement, Using more than one pad per hour, Shortness of breath, Chest pain, Calf discomfort, Uncontrolled pain Suture Line Care: Avoid Pulling/Pushing Cleanse incision/area with: Soap & Water Additional Instructions: If you experience any of the following, contact your healthcare provider. Bleeding that soaks a pad every hour for 2 hours Fever 100.4 or higher Unrelieved incision or abdominal pain Swelling, redness, discharge or bleeding from your incision or episiotomy site Your incision begins to separate Problems urinating (including inability to urinate or burning while urinating). Visual changes Severe headache Flu-like symptoms Pain or redness in one of both of your breasts Pain, warmth, tenderness or swelling in your legs, especially the calf area Frequent nausea and vomiting Symptoms of depression or anxiety If you experience any of the following, call 911 or go to the nearest Emergency Room. Chest pain Problems breathing Seizure activity Partial or complete paralysis of a body part, slurred speech, weakness or drooping of the face, or a sudden inability to walk or hold your balance Allergies/Adverse Reactions: Allergies No Known Allergies Allergy (Verified 03/20/20 04:40) Medications to take at Discharge Ferrous Sulfate [Iron] 325 mg PO BID 07/23/18 Vits [Prenatabs FA] 1 tablet PO DAILY 07/23/18 Please Follow Up With: Tiffany When: 6 weeks Primary Care Physician: Horace Rowe MD [Primary Care Provider] - Test Results: Test results from this visit will be discussed in further detail at your follow-up appointment, if applicable.
[2020-03-20] MEDS: Ibuprofen 600 MG Tablet PO ×2 (14:50→22:15)
[2020-03-20] MEDS: Prenatal Vits Tablet 1 TABLET PO (14:52)
[2020-03-20] MEDS: Acetaminophen 500 MG Tablet PO (18:48)
[2020-03-21 00:08] VITALS: BP 109/64; PULSE 87; RESP 16; TEMP 36.6
[2020-03-21 04:26] VITALS: BP 121/75; PULSE 106; RESP 16; TEMP 36.6
[2020-03-21] MEDS: Acetaminophen 500 MG Tablet PO ×2 (04:40→11:51)
[2020-03-21 08:51] VITALS: BP 90/65; PULSE 89; RESP 14; TEMP 36.8
[2020-03-21] MEDS: Prenatal Vits Tablet 1 TABLET PO (11:51)
[2020-03-21] MEDS: Ibuprofen 600 MG Tablet PO (11:52)
[2020-03-21] MEDS: Senna/Docusate Sodium 1 Tablet PO (11:52)
[2020-03-21 13:16] VITALS: BP 110/62; PULSE 110; RESP 16; TEMP 36.8
== END 2020-03-21 13:20 | disposition home or self-care (01) | DRG 807 ==
LOC: WPOUT 03:47 → WP 03:47
PROVIDERS: Admitting Provider Obstetrics & Gynecology; PCP Family Medicine; Visit Provider Obstetrics & Gynecology
DX: O77.0 Labor and delivery complicated by meconium in amniotic fluid (principal); Z37.0 Single live birth; Z3A.40 40 weeks gestation of pregnancy; Z83.2 Family history of diseases of the blood and blood-forming organs and certain disorders involving the immune mechanism; O70.1 Second degree perineal laceration during delivery
CPT/HCPCS: 59025; 59050; 85025; 86850; 86900; 86901; 86920; 87426; 99218; J7120; G0378